=== PATIENT | female | born 1980 | race Caucasian/White ===

== ENCOUNTER → 2018-06-21 13:01 | Outpatient (CLI) | payer OTHER, SELFPAY ==
--- NOTE | 2018-06-21 | DI.MRI.S_ITS ---
PROCEDURE: MR ANKLE LT WO CON INDICATIONS: BILATERAL FOOT PAIN TECHNIQUE: Noncontrast sagittal T1 spin echo and T2 fast spin echo with fat saturation, axial proton density fast spin echo and T2 fast spin echo with fat saturation, coronal T1 spin echo and T2 fast spin echo with fat saturation through the ankle/hindfoot. COMPARISON: [facility], MR, MR ANKLE RT WO CON, 06/21/2018, 13:30. FINDINGS: Image quality: There is mild inhomogeneous fat saturation. Bones and joints: No bone marrow contusions or fractures. No hindfoot coalitions. No osteochondral injuries of the talar dome. There is a small plantar calcaneal enthesophyte mild associated bone marrow edema. No pathologic joint effusions. Medial structures: The posterior tibialis, flexor digitorum longus, and flexor hallucis longus tendons are intact. The posterior tibial neurovascular bundle appears normal within the tarsal tunnel, without extrinsic mass effect. The deltoid and spring ligaments appear intact. Lateral structures: The anterior talofibular, calcaneofibular, and posterior talofibular ligaments appear intact. More superiorly, the anterior and posterior tibiofibular ligaments appear intact, as is the intermalleolar ligament. The tibiofibular syndesmosis is normal in width at 2 mm or less. The peroneus longus and brevis tendons demonstrate normal location and morphology. Adjacent bony peroneal tubercle and retrotrochlear prominence are normal in size. The sinus tarsi demonstrates normal fatty signal, without edema, fibrosis, or cyst formation. The calcaneonavicular and calcaneocuboid components of the bifurcate ligament appear intact. The dorsal calcaneocuboid ligament appears intact. Anterior structures: The tibialis anterior, extensor hallucis longus, and extensor digitorum longus tendons appear intact. The dorsal talonavicular ligament appears intact. Posterior and plantar structures: Achilles tendon is intact. There is thickening of the central and lateral cords of the plantar fascia with associated mild intrasubstance partial tearing of the lateral cord. There is mild adjacent soft tissue edema. No abductor digiti quinti muscle atrophy to suggest Keller neuropathy. IMPRESSION: 1. Findings consistent with plantar fasciitis with mild partial tearing at the origin of the lateral cord associated with mild reactive edema in the calcaneus. Dictated by: Scott Alfredo M.D. on 06/21/2018 at 17:15 Approved by: Scott Alfredo M.D. on 06/21/2018 at 17:21
--- NOTE | 2018-06-21 | DI.MRI.S_ITS ---
PROCEDURE: MR ANKLE RT WO CON INDICATIONS: BILATERAL FOOT PAIN TECHNIQUE: Noncontrast sagittal T1 spin echo and T2 fast spin echo with fat saturation, axial proton density fast spin echo and T2 fast spin echo with fat saturation, coronal T1 spin echo and T2 fast spin echo with fat saturation through the ankle/hindfoot. COMPARISON: None. FINDINGS: Image quality: There is mild inhomogeneous fat saturation. Bones and joints: No bone marrow contusions or fractures. There is a small plantar calcaneal enthesophyte with associated mild bone marrow edema. There is a small focus of subchondral edema along the medial talar dome associated with a small focus of overlying chondral fissuring. No hindfoot coalitions. No pathologic joint effusions. Medial structures: The posterior tibialis, flexor digitorum longus, and flexor hallucis longus tendons are intact. The posterior tibial neurovascular bundle appears normal within the tarsal tunnel, without extrinsic mass effect. The deltoid and spring ligaments appear intact. Lateral structures: The anterior talofibular, calcaneofibular, and posterior talofibular ligaments appear intact. More superiorly, the anterior and posterior tibiofibular ligaments appear intact, as is the intermalleolar ligament. The tibiofibular syndesmosis is normal in width at 2 mm or less. The peroneus longus and brevis tendons demonstrate normal location and morphology. Adjacent bony peroneal tubercle and retrotrochlear prominence are normal in size. The sinus tarsi demonstrates preserved fatty signal, without edema, fibrosis, or cyst formation. The calcaneonavicular and calcaneocuboid components of the bifurcate ligament appear intact. The dorsal calcaneocuboid ligament appears intact. Anterior structures: The tibialis anterior, extensor hallucis longus, and extensor digitorum longus tendons appear intact. The dorsal talonavicular ligament appears intact. Posterior and plantar structures: Achilles tendon is intact. There is thickening of the central cord of the plantar fascia proximally with mild intrasubstance partial tearing at its origin and associated mild adjacent soft tissue edema. Findings are consistent with plantar fasciitis. No abductor digiti quinti muscle atrophy to suggest Keller neuropathy. IMPRESSION: 1. Findings consistent plantar fasciitis with mild intrasubstance partial tearing at the origin of the central cord and mild reactive edema in the calcaneus. 2. Small focus of subchondral edema in the medial talar dome associated with mild overlying chondral degeneration. Dictated by: Scott Alfredo M.D. on 06/21/2018 at 16:19 Approved by: Scott Alfredo M.D. on 06/21/2018 at 16:26
== END ==
PROVIDERS: Visit Provider Podiatrist
DX: M79.671 Pain in right foot (principal); M79.672 Pain in left foot; M72.2 Plantar fascial fibromatosis
CPT/HCPCS: 73721

== ENCOUNTER 2019-01-25 19:54 | Emergency (ER) | payer OTHER, SELFPAY ==
[2019-01-25 20:04] VITALS: BP 120/58; PULSE 88; RESP 18; TEMP 36.8; O2SAT 97; BMI 41.5
--- NOTE | 2019-01-25 20:19 | ED.ABDPAIN ---
HPI - Abdominal Pain General Chief Complaint: Abdominal Pain Stated Complaint: STOMACH PAIN Time Seen by Provider: 01/25/19 20:12 Source: patient Mode of arrival: ambulatory Limitations: no limitations History of Present Illness HPI narrative: Patient is a 38-year-old female who presents with sudden onset of epigastric pain has progressively gotten worse throughout the day. She states is quite intense it does not seem to be radiating to her chest or Lopressor abdomen. She denies nausea vomiting no diarrhea. She has never had anything like this in the past. She took ibuprofen earlier and he said it made the pain worse. She denies any history of acid reflux. MD complaint: abdominal pain Onset (ago): hour(s) Pain Consistency: constant Severity: moderate Quality: sharp Radiation: none Migration to: no migration Exacerbating factors: nothing Related Data Home Medications Medication Instructions Recorded Confirmed albuterol sulfate HFA 90 1 puff INHALATION .unk PRN gram 10/20/18 10/20/18 mcg/actuation aerosol inhaler cetirizine 10 mg capsule 10 mg PO DAILY 10/20/18 10/20/18 fluticasone 250 mcg-salmeterol 50 1 inhalation INHALATION BID 10/20/18 10/20/18 mcg/dose blistr powdr for inhalation fluticasone propionate 50 1 spray NASAL DAILY 10/20/18 10/20/18 mcg/actuation nasal spray,suspension Previous Rx's Medication Instructions Recorded gabapentin 300 mg capsule 300 mg PO TID #90 cap 10/20/18 methylprednisolone 4 mg tablets in See Rx Instructions PO PER PKG DIR 10/20/18 a dose pack #21 each omeprazole 20 mg PO DAILY PRN #14 tab 01/25/19 Allergies Allergy/AdvReac Type Severity Reaction Status Date / Time No Known Allergies Allergy Uncoded 12/25/18 14:42 Review of Systems Review of Systems GENERAL: Denies chills, fatigue, malaise, fever, sweats, travel HEENT: Denies sinus pain, ear pain, sore throat, difficulty swallowing, neck pain RESPIRATORY: Denies dyspnea, cough, wheezing, hemoptysis, sputum. CARDIOVASCULAR: Denies chest pain, palpitations, orthopnea, edema GASTROINTESTINAL: See HPI : Denies dysuria, frequency, incontinence, hematuria, urinary retention, flank pain. MUSCULOSKELETAL: Denies weakness, joint pain, or bony pain SKIN: No rash, no erythema, no pruritus NEUROLOGIC: Denies weakness, dizziness, headache, numbness, change in speech, confusion PSYCHIATRIC: No concerning psychosocial issues. 12 point review of systems is negative except for those stated above and HPI [facility] Medical History Patient denies significant medical history (Acute) Social History Smoking Status: Former smoker Social History Smoking Status: Former smoker Exam Initial Vital Signs Initial Vital Signs: Vital Signs Temperature 98.2 F 01/25/19 20:04 Pulse Rate 88 01/25/19 20:04 Respiratory Rate 18 01/25/19 20:04 Blood Pressure 120/58 L 01/25/19 20:04 Pulse Oximetry 97 01/25/19 20:04 GENERAL: Middle-aged female appears uncomfortable and in no acute distress. HEENT: Head atraumatic,EOMI, pupils reactive, face symmetric, CARDIOVASCULAR: Regular rate and rhythm without murmurs, rubs or gallops. RESPIRATORY: Breath sounds equal bilaterally, no wheezes rales or rhonchi. ABDOMEN: Soft, tender epigastric area no guarding or rebound negative Araujo's sign no lower abdominal pain EXTREMITIES: Normal range of motion, no clubbing or edema. Neurovascularly intact NEUROLOGICAL: Alert and oriented x4.Normal gait and speech. SKIN: Warm, dry, no laceration, no petechiae, no rashes or lesions. Scores HEART Score Heart Score history: Slightly Suspicious Heart Score EKG: Normal Heart Score Age: < 45 years old Heart Score risk factors: No known risk factors Heart Score troponin: < or = to normal limit Heart Score Total: 0 Course Orders Ordered: ED Orders 01/25/19 20:08 EKG-12 Lead Stat 01/25/19 20:14 Complete Blood Count AUTO DIFF Stat Comprehensive Metabolic Panel Stat Lipase Stat Partial Thromboplastin Time Stat Prothrombin Time INR Stat Troponin I Stat 01/25/19 20:25 US abdomen limited Stat Discontinued Medications Hydromorphone HCl (Dilaudid) 0.5 mg IV NOW ONE Stop: 01/25/19 20:26 Last Admin: 01/25/19 20:33 Dose: 0.5 mg Pantoprazole Sodium (Protonix) 40 mg IV NOW ONE Stop: 01/25/19 20:26 Last Admin: 01/25/19 20:33 Dose: 40 mg Vital Signs - 8 hr 01/25/19 20:04 01/25/19 21:30 01/25/19 21:56 Temperature 98.2 F Pulse Rate 88 84 65 Respiratory Rate 18 12 Blood Pressure 120/58 L Blood Pressure [Left Arm] 121/73 121/73 Pulse Oximetry 97 94 01/25/19 22:30 01/25/19 22:55 Temperature Pulse Rate 70 66 Respiratory Rate 17 19 Blood Pressure 125/67 Blood Pressure [Left Arm] 124/69 Pulse Oximetry 94 94 MDM - Abdominal Pain Lab Data Attestation: I reviewed the patient's lab results. Result diagrams: 01/25/19 20:14 01/25/19 20:14 Lab Results 01/25/19 01/25/19 01/25/19 Range/Units 20:14 20:14 20:14 WBC 13.2 H (4.5-11.0) X10^3/uL RBC 4.75 (4.0-5.2) X10^6/uL Hgb 14.5 (12.0-16.0) g/dL Hct 42.0 (36-46) % MCV 88.5 (80-100) fL MCH 30.5 (26-34) PG MCHC 34.5 (30-36) % RDW 13.1 (11.6-14.8) % Plt Count 306 (150-400) X10^3/uL Neut % (Auto) 77.3 H (50-75) % Lymph % (Auto) 15.0 L (25-40) % Hunt % (Auto) 6.0 (3-14) % Eos % (Auto) 1.2 L (2-4) % Baso % (Auto) 0.5 (0-2) % Neut # (Auto) 77617 H (8742-0470) /uL Lymph # (Auto) 2000 (8742-3802) /uL Hunt # (Auto) 800 (0-900) /uL Eos # (Auto) 200 (0-450) /uL Baso # (Auto) 100 (0-100) /uL PT 12.7 (10.1-12.7) SECONDS INR 1.1 (0.9-1.3) APTT 34 (26.4-36.2) SECONDS Sodium 138 (137-145) mmol/L Potassium 3.4 (3.4-5.1) mmol/L Chloride 105 (98-107) mmol/L Carbon Dioxide 24 (22-32) mmol/L BUN 8 (7-17) mg/dL Creatinine 0.50 L (0.52-1.04) mg/dL Estimated GFR > 60.0 (>60) mL/min BUN/Creatinine Ratio 16.0 (6-22) Glucose 102 H (70-100) mg/dL Calcium 8.9 (8.4-10.2) mg/dL Total Bilirubin 0.5 (0.2-1.3) mg/dL AST 19 (14-36) IU/L ALT 24 (9-52) IU/L Alkaline Phosphatase 72 (38-126) U/L Troponin I (0.01-0.034) ng/mL Total Protein 7.0 (6.3-8.2) g/dL Albumin 4.1 (3.5-5.0) g/dL Globulin 2.9 (1.7-4.1) g/dL Albumin/Globulin Ratio 1.4 (1.0-2.8) Lipase 58 (23-300) U/L 01/25/19 Range/Units 20:14 WBC (4.5-11.0) X10^3/uL RBC (4.0-5.2) X10^6/uL Hgb (12.0-16.0) g/dL Hct (36-46) % MCV (80-100) fL MCH (26-34) PG MCHC (30-36) % RDW (11.6-14.8) % Plt Count (150-400) X10^3/uL Neut % (Auto) (50-75) % Lymph % (Auto) (25-40) % Hunt % (Auto) (3-14) % Eos % (Auto) (2-4) % Baso % (Auto) (0-2) % Neut # (Auto) (9009-8409) /uL Lymph # (Auto) (1072-4680) /uL Hunt # (Auto) (0-900) /uL Eos # (Auto) (0-450) /uL Baso # (Auto) (0-100) /uL PT (10.1-12.7) SECONDS INR (0.9-1.3) APTT (26.4-36.2) SECONDS Sodium (137-145) mmol/L Potassium (3.4-5.1) mmol/L Chloride (98-107) mmol/L Carbon Dioxide (22-32) mmol/L BUN (7-17) mg/dL Creatinine (0.52-1.04) mg/dL Estimated GFR (>60) mL/min BUN/Creatinine Ratio (6-22) Glucose (70-100) mg/dL Calcium (8.4-10.2) mg/dL Total Bilirubin (0.2-1.3) mg/dL AST (14-36) IU/L ALT (9-52) IU/L Alkaline Phosphatase (38-126) U/L Troponin I < 0.012 (0.01-0.034) ng/mL Total Protein (6.3-8.2) g/dL Albumin (3.5-5.0) g/dL Globulin (1.7-4.1) g/dL Albumin/Globulin Ratio (1.0-2.8) Lipase (23-300) U/L Imaging Data US - abdomen: Radiologist's impression: PROCEDURE: US ABDOMEN LIMITED INDICATIONS: RIGHT UPPER QUADRANT PAIN TECHNIQUE: Real-time scanning was performed of the abdominal and retroperitoneal organs, with image documentation. COMPARISON: None. FINDINGS: Liver: Liver is normal in size and homogeneous in echotexture. Gallbladder: Nondistended. No gallstones. Normal gallbladder wall thickness. No pericholecystic fluid. Negative sonographic Araujo's sign. Biliary ducts: Intrahepatic bile ducts are non-dilated. Extrahepatic bile duct caliber measures 4 mm. Normal is 6-7 mm or less in diameter, or 10 mm or less post-cholecystectomy. Pancreas: Visualized portions of the pancreas are sonographically normal. Miscellaneous: No free abdominal fluid. IMPRESSION: Negative exam. No acute cholecystitis. No gallstones. Dictated by: Hu Roldan M.D. on 01/25/2019 at 21:52 ECG Data Attestation: I personally reviewed and interpreted this ECG as follows: Prior ECG tracings: not available for review Interpretation: Normal sinus rhythm rate 73 P are interval 135 T-wave inversion noted in lead [address] elevations MDM Narrative Medical decision making narrative: Patient overall is feeling significantly better after Dilaudid and Protonix. Ultrasound is negative. She has no chest pain. I do not believe this to be cardiac troponin is negative Discharge Plan Departure Patient Disposition: Home Clinical Impression: GERD (gastroesophageal reflux disease) Qualifiers: Esophagitis presence: esophagitis presence not specified Qualified Code(s): K21.9 - Gastro-esophageal reflux disease without esophagitis Discharge Date/Time: 01/25/19 22:57 Interventions: ED Discharge Assessment Last Done: 01/25/19 22:55 Instructions: DI for Gastroesophageal Reflux Disease (GERD) Activity Restrictions/Additional Instructions: *You have been diagnosed with acid reflux *What to do: At this time blood work and gallbladder are reassuring. His *Continue to take medications as directed Omeprazole 20 mg once a day on an empty stomach--> set at to [facility] in [place] *Follow up with your primary care provider in 2-3 days *Return to ER if you should have increasing pain and chest pain shortness of breath or any new, worsening or concerning symptoms Prescriptions: New omeprazole 20 mg tablet,delayed release (DR/EC) 20 mg PO DAILY PRN (Reason: acid reflux) Qty: 14 RF: 0 No Action Zyrtec 10 mg capsule 10 mg PO DAILY RF: 0 fluticasone propionate [Flonase Allergy Relief] 50 mcg/actuation spray,suspension 1 spray NASAL DAILY RF: 0 fluticasone propion-salmeterol [Advair Diskus] 250-50 mcg/dose blister with device 1 inhalation INHALATION BID RF: 0 albuterol sulfate 90 mcg/actuation HFA aerosol inhaler 1 puff INHALATION .unk PRNRF: 0 gabapentin 300 mg capsule 300 mg PO TID Qty: 90 RF: 2 methylprednisolone [Medrol (Marc)] 4 mg tablets,dose pack See Rx Instructions PO PER PKG DIR Qty: 21 RF: 0 Referrals: Kurt Mccurdy MD [Primary Care Provider] -
[2019-01-25 20:24] LABS: Add Manual Diff / Slide Review NO; Basophils Absolute Auto 100 /uL (0-100); Basophils Percent Auto 0.5 % (0-2); Eosinophils Absolute Auto 200 /uL (0-450); Eosinophils Percent Auto 1.2 % (2-4); Hemoglobin 14.5 g/dL (12.0-16.0); Lymphocytes Absolute Auto 2000 /uL (1100-4500); Mean Corpuscular HGB Conc 34.5 % (30-36); Mean Corpuscular Hemoglobin 30.5 PG (26-34); Mean Corpuscular Volume 88.5 fL (80-100); Monocytes Absolute Auto 800 /uL (0-900); Neutrophils Absolute Auto 10200 /uL (1500-7000); Neutrophils Percent Auto 77.3 % (50-75); Platelet Count 306 X10^3/uL (150-400); Red Blood Cell Count 4.75 X10^6/uL (4.0-5.2); Red Cell Distribution Width 13.1 % (11.6-14.8); White Blood Cell Count 13.2 X10^3/uL (4.5-11.0)
--- NOTE | 2019-01-25 20:25 | DI.US.S_ITS ---
PROCEDURE: US ABDOMEN LIMITED INDICATIONS: RIGHT UPPER QUADRANT PAIN TECHNIQUE: Real-time scanning was performed of the abdominal and retroperitoneal organs, with image documentation. COMPARISON: None. FINDINGS: Liver: Liver is normal in size and homogeneous in echotexture. Gallbladder: Nondistended. No gallstones. Normal gallbladder wall thickness. No pericholecystic fluid. Negative sonographic Araujo's sign. Biliary ducts: Intrahepatic bile ducts are non-dilated. Extrahepatic bile duct caliber measures 4 mm. Normal is 6-7 mm or less in diameter, or 10 mm or less post-cholecystectomy. Pancreas: Visualized portions of the pancreas are sonographically normal. Miscellaneous: No free abdominal fluid. IMPRESSION: Negative exam. No acute cholecystitis. No gallstones. Dictated by: Hu Roldan M.D. on 01/25/2019 at 21:52 Approved by: Hu Roldan M.D. on 01/25/2019 at 21:54
[2019-01-25] MEDS: HYDROMORPHONE 0.5 MG INJ IV (20:33)
[2019-01-25] MEDS: PANTOPRAZOLE 40 MG VIAL IV (20:33)
[2019-01-25 20:36] LABS: Alanine Aminotransferase 24 IU/L (9-52); Albumin 4.1 g/dL (3.5-5.0); Albumin Globulin Ratio 1.4 (1.0-2.8); Alkaline Phosphatase 72 U/L (38-126); Aspartate Aminotransferase 19 IU/L (14-36); Bilirubin Total 0.5 mg/dL (0.2-1.3); Blood Urea Nitrogen 8 mg/dL (7-17); Calcium 8.9 mg/dL (8.4-10.2); Carbon Dioxide 24 mmol/L (22-32); Chloride 105 mmol/L (98-107); Estimated Glomerular Filt Rate > 60.0 mL/min (>60); Globulin 2.9 g/dL (1.7-4.1); Glucose 102 mg/dL (70-100); HEMOLYSIS 19 (0-50); Lipase 58 U/L (23-300); Potassium 3.4 mmol/L (3.4-5.1); Sodium 138 mmol/L (137-145)
[2019-01-25 20:52] LABS: INR 1.1 (0.9-1.3); Prothrombin Time 12.7 SECONDS (10.1-12.7)
[2019-01-25 20:55] LABS: PTT Partial Thromboplastin Tim 34 SECONDS (26.4-36.2)
[2019-01-25 21:30] VITALS: BP 121/73; PULSE 84
[2019-01-25 21:56] VITALS: BP 121/73; PULSE 65; RESP 12; O2SAT 94
[2019-01-25 22:30] VITALS: BP 124/69; PULSE 70; RESP 17; O2SAT 94
[2019-01-25 22:32] LABS: Troponin I < 0.012 ng/mL (0.01-0.034)
[2019-01-25 22:55] VITALS: BP 125/67; PULSE 66; RESP 19; O2SAT 94
== END 2019-01-25 22:57 | disposition home or self-care (01) ==
PROVIDERS: Emergency Provider Emergency Medicine; PCP General Practice
DX: K21.9 Gastro-esophageal reflux disease without esophagitis (principal)
CPT/HCPCS: 36415; 36591; 76705; 80053; 83690; 84484; 85025; 85610; 85730; 93005; 93010; 96374; 96375; 99283; 99285; C9113; J1170

== ENCOUNTER → 2023-01-04 11:59 | Outpatient (CLI) | payer OTHER, SELFPAY ==
--- NOTE | 2023-01-04 | DI.MG.S_ITS ---
UNILATERAL RIGHT DIGITAL DIAGNOSTIC MAMMOGRAM 3D/2D WITH ADDITIONAL VIEWS: 01/04/2023 CLINICAL: Additional evaluation requested from prior study. Comparison is made to exam dated: 12/27/2022 mammogram - [facility]. The right breast is heterogeneously dense, which may obscure small masses (category c / 51-75% glandular tissue). There is an oval mass in the right breast at 9 o'clock posterior depth. There also is an oval mass in the right breast at 4 o'clock middle depth. No other significant masses or calcifications are seen in the breast. IMPRESSION: INCOMPLETE: NEEDS ADDITIONAL IMAGING EVALUATION The oval mass in the right breast at 9 o'clock posterior depth is indeterminate. The oval mass in the right breast at 4 o'clock middle depth is indeterminate. A targeted ultrasound is recommended and will immediately follow. Based on the Tyrer Cuzick model (a risk assessment model) the patient's lifetime risk is 9.8% and her 10 year risk is 1.7%. According to the ACR, ACS, and NCCN guidelines, an annual breast MRI exam along with mammogram is recommended if the patient's lifetime risk is 20% or greater. This exam was interpreted at Station ID: [id number]. NOTE: For mammograms, a report in lay terms will be sent to the patient. Approximately 15% of breast malignancies will not be visualized mammographically. In the management of a palpable breast mass, a negative mammogram must not discourage biopsy of a clinically suspicious lesion. Electronically Signed By: Hu Roldan M.D. slc/:01/05/2023 12:08:00 ACR BI-RADS Category 0: Incomplete 3340F
--- NOTE | 2023-01-04 | DI.US.S_ITS ---
LIMITED ULTRASOUND OF RIGHT BREAST AND AXILLA: 01/04/2023 CLINICAL: Patient returns today to evaluate two focal asymmetries in the right breast. Comparison is made to exams dated: 01/04/2023 mammogram - [facility] and 12/27/2022 mammogram - [facility]. Color flow and real-time ultrasound of the right breast 3-6 o'clock, 8-9 o'clock, and axilla regions were performed. Corey scale images of the real-time examination were reviewed. There is a 0.9 cm x 0.8 cm x 0.5 cm oval mass in the right breast at 9 o'clock posterior depth 7 cm from the nipple. This oval mass is hypoechoic. Additionally, there is a 0.8 cm x 0.8 cm x 0.3 cm oval mass with a microlobulated margin in the right breast at 8 o'clock middle depth 5 cm from the nipple. This oval mass is hypoechoic. Color flow imaging demonstrates that there is an adjacent vascularity. No sonographic mass identified in the right breast at 4 o'clock middle depth. In addition, there is a 1.2 cm enlarged lymph node with a circumscribed margin in the right axilla. No cortical thickening. Preserved fatty hilum. IMPRESSION: SUSPICIOUS OF MALIGNANCY The 0.9 cm x 0.8 cm x 0.5 cm oval mass in the right breast at 9 o'clock posterior depth resembles a fibroadenoma and is at a low suspicion for malignancy. -An ultrasound guided biopsy is recommended. The 0.8 cm oval mass in the right breast at 8 o'clock middle depth most likely is a fibroadenoma and is probably benign. -A follow-up ultrasound in 6 months is recommended. No mass identified at the site of mammographic abnormality in the right breast at 4 o'clock middle depth. This may represent an additional fibroadenoma and is probably benign. -Follow-up mammogram and possible ultrasound in 6 months is recommended. Enlarged right axillary lymph nodes are probably benign. No cortical thickening. Low suspicion. -Will preform right breast 9:00 biopsy, then correlate with expected benign pathology. -Recommend clinical correlation and follow-up ultrasound in 6 months. Exam findings were discussed with the patient. Patient is advised to monitor for significant change. Clinical follow-up is recommended. This exam was interpreted at Station ID: [id number]. Electronically Signed By: Hu Roldan M.D. slc/:01/04/2023 13:58:02 letter sent: Biopsy Required Ultrasound BI-RADS: 4a Low suspicion for malignancy
== END ==
PROVIDERS: PCP Physician Assistant; Referring Provider Family Medicine; Visit Provider Family Medicine
DX: R92.8 Other abnormal and inconclusive findings on diagnostic imaging of breast (principal); N63.15 Unspecified lump in the right breast, overlapping quadrants; N63.14 Unspecified lump in the right breast, lower inner quadrant
CPT/HCPCS: 76642; 77065; G0279

== ENCOUNTER → 2023-01-12 12:45 | Outpatient (CLI) | payer OTHER, SELFPAY ==
--- NOTE | 2023-01-12 | PATH_ITS ---
[facility] Accession Number: [id number] No. of containers..01 Tissue . 01 Material submitted: . breast - RIGHT BREAST MASS 9:00 7 CCMFN . 01 Diagnosis: Right Breast, 9 o'clock, 7 cm from Nipple, Image-Guided Core Biopsy: Fibroepithelial lesion consistent with fibroadenoma, with associated stromal hyalinization. Negative for significant atypia and malignancy. MRV 01/17/2023 1913 Local . 01 Comment: *Immunostains to the myoepithelial markers p63 and smooth muscle myosin heavy chain are performed, with the controls stained appropriately. 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 . * This test was developed and its performance characteristics determined by [employer]. It has not been cleared or approved by the U.S. Food and Drug Administration. The FDA has determined that such clearance or approval is not necessary. This test is used for clinical purposes. It should not be regarded as investigational or for research. . 01 Electronically signed: . Beverly Jalloh MD, Pathologist NPI- [id number] . 01 Gross description: . The specimen is received in formalin labeled with the patient's name, , and right breast 9 o'clock 7 cm FN, consists of multiple yellow to copeland soft tissue fragments aggregating to 1.7 x 1.0 x 0.2 cm. The specimen is inked black and submitted entirely in cassette A1. . The specimen was removed on 01/12/2023 at 1413; time in formalin not provided; cold ischemic time cannot be calculated; and total fixation time is approximately 22 hours. ([id number]) /MRV 01/13/2023 1752 Local . 01 Pathologist provided ICD-10: N60.21 . 01 CPT . 981017, [id number], [id number] Specimen Comment: A courtesy copy of this report has been sent to [facility] Pathology Performed at: 01 [facility] Cytology [address] [place] [address], [place], [place] [id number] MD Scott Fuentes MD Phone: [phone]
--- NOTE | 2023-01-12 12:48 | DI.US.S_ITS ---
ULTRASOUND GUIDED BIOPSY RIGHT BREAST USING VACUUM DEVICE WITH MARKING DEVICE INSERTED AND POST DIGITAL MAMMOGRAPHIC AND ULTRASOUND IMAGIN01/12/2023 CLINICAL: Right breast mass. PATIENT CONSENT: Risks (minor bleeding, infection, vasovagal reaction and repeat procedure), benefits and alternatives were explained to the patient and written informed consent was obtained. Correlation is made to exams dated: 01/12/2023 mammogram, 01/04/2023 ultrasound, 01/04/2023 mammogram - [facility], and 12/27/2022 mammogram - [facility]. An ultrasound guided biopsy using real-time ultrasound was performed for the 0.9 cm x 0.8 cm x 0.5 cm mass located in the right breast at 9 o'clock posterior depth 7 cm from the nipple. This was described on the previous mammography and ultrasound reports. The skin was prepped in the usual manner. Local anesthetic was administered to the access site. A skin mere was made in the breast. The abnormality was approached from the lateral aspect. A 13 gauge biopsy needle was placed adjacent to the abnormality under ultrasound guidance. Once the needle was documented to be in the correct location, four specimens were obtained using the Mammotome biopsy system. A clip was inserted into the biopsy cavity. A sterile dressing was applied to the access site. Post procedure digital mammographic and ultrasound imaging demonstrates the location device at the targeted area. The specimens were sent to the laboratory for pathological analysis. IMPRESSION: ULTRASOUND GUIDED BIOPSY BENIGN Ultrasound guided biopsy of the 0.9 cm x 0.8 cm x 0.5 cm mass in the right breast at 9 o'clock posterior depth 7 cm from the nipple was successful with no apparent post procedure complications. 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 Pathology results are concordant with imaging findings. Return to annual mammogram screening schedule is recommended. This exam was interpreted at Station ID: [id number]. Wander Ramirez M.D. ar,aty/:01/18/2023 20:35:44
--- NOTE | 2023-01-12 12:49 | DI.MG.S_ITS ---
UNILATERAL RIGHT DIGITAL DIAGNOSTIC MAMMOGRAM 3D/2D POST-PROCEDURE IMAGING FOR MARKER PLACEMENT: 01/12/2023 CLINICAL: Post clip. Comparison is made to exams dated: 01/04/2023 mammogram - [facility], 12/27/2022 mammogram - [facility], 01/04/2023 ultrasound, and 01/12/2023 ultrasound biopsy - [facility]. The right breast is heterogeneously dense, which may obscure small masses (category c / 51-75% glandular tissue). There is a marker clip in the appropriate position in the right breast at 9 o'clock posterior depth. IMPRESSION: POST PROCEDURE MAMMOGRAM FOR MARKER PLACEMENT There was a successful marker clip placement in the right breast posterior depth. Based on the Tyrer Cuzick model (a risk assessment model) the patient's lifetime risk is 10.3% and her 10 year risk is 1.8%. According to the ACR, ACS, and NCCN guidelines, an annual breast MRI exam along with mammogram is recommended if the patient's lifetime risk is 20% or greater. This exam was interpreted at Station ID: [id number]. NOTE: For mammograms, a report in lay terms will be sent to the patient. Approximately 15% of breast malignancies will not be visualized mammographically. In the management of a palpable breast mass, a negative mammogram must not discourage biopsy of a clinically suspicious lesion. Electronically Signed By: Wander mayers/jamaal:01/13/2023 11:37:43 ACR BI-RADS Category Post-procedure mammogram for marker placement
== END ==
PROVIDERS: PCP Physician Assistant; Referring Provider Physician Assistant; Visit Provider Physician Assistant
DX: N63.15 Unspecified lump in the right breast, overlapping quadrants (principal); N64.89 Other specified disorders of breast
CPT/HCPCS: 19083; 77065

== ENCOUNTER → 2024-01-02 16:17 | Outpatient (CLI) | payer OTHER, SELFPAY ==
--- NOTE | 2024-01-02 16:19 | DI.MG.S_ITS ---
BILATERAL DIGITAL SCREENING MAMMOGRAM 3D/2D WITH CAD: 01/02/2024 CLINICAL: Routine screening. Comparison is made to exams dated: 12/27/2022 mammogram - [facility], 01/12/2023 ultrasound biopsy, 01/04/2023 ultrasound, and 01/04/2023 mammogram - [facility]. Both breasts are heterogeneously dense, which may obscure small masses (category c / 51-75% glandular tissue). Current study was also evaluated with a Computer Aided Detection (CAD) system. There is an oval mass in the right breast at 4 o'clock middle depth. This is not significantly changed and was not seen on the prior ultrasound. There also is an oval focal asymmetry with a circumscribed margin in the right breast at 8 o'clock middle depth. This correlates with ultrasound findings. Additionally, there is a stable oval mass in the right breast at 9 o'clock posterior depth. There is a biopsy clip associated with the mass. No other significant masses, calcifications, or other findings are seen in either breast. IMPRESSION: INCOMPLETE: NEEDS ADDITIONAL IMAGING EVALUATION The stable oval mass in the right breast at 4 o'clock middle depth corresponds to the prior probably benign mammographic findings and is indeterminate. An ultrasound is recommended for further evaluation. The oval focal asymmetry in the right breast at 8 o'clock middle depth corresponds to prior probaby benign sonographic mass and is indeterminate. An ultrasound is recommended for further evaluation. The stable oval mass in the right breast at 9 o'clock posterior depth is consistent with a biopsy-proven fibroadenoma and is benign. Based on the Tyrer Cuzick model (a risk assessment model) the patient's lifetime risk is 10.2% and her 10 year risk is 1.9%. According to the ACR, ACS, and NCCN guidelines, an annual breast MRI exam along with mammogram is recommended if the patient's lifetime risk is 20% or greater. This exam was interpreted at Station ID: [id number]. NOTE: For mammograms, a report in lay terms will be sent to the patient. Approximately 15% of breast malignancies will not be visualized mammographically. In the management of a palpable breast mass, a negative mammogram must not discourage biopsy of a clinically suspicious lesion. Electronically Signed By: Wander Barclay M.D. ar/:01/04/2024 10:30:24 letter sent: Need Ultrasound ACR BI-RADS Category 0: Incomplete 1634F
== END ==
LOC: MAMMO 16:19
PROVIDERS: Referring Provider Nurse Practitioner Family; Visit Provider Nurse Practitioner Family
DX: Z12.31 Encounter for screening mammogram for malignant neoplasm of breast (principal); R92.333 Mammographic heterogeneous density, bilateral breasts
CPT/HCPCS: 77063; 77067

== ENCOUNTER 2024-01-10 09:05 | Day surgery (SDC) | payer OTHER, SELFPAY ==
--- NOTE | 2024-01-10 | PATH_ITS ---
[facility] Accession Number: [id number] No. of containers..01 Tissue . 01 Material submitted: . colon - ASCENDING COLON POLYP . 01 Diagnosis: ASCENDING COLON POLYP: Tubular adenoma. [facility] 01/12/2024 1633 Local . 01 Electronically signed: . Scott Fuentes MD, Pathologist NPI- [id number] . 01 Gross description: . Received in formalin with two patient identifiers and ascending colon polyp, is a single copeland soft tissue fragment, 0.6 cm in greatest dimension. Submitted in A1. ([id number]) /MRV 01/12/2024 1633 Local . 01 Pathologist provided ICD-10: D12.2 . 01 CPT . 393138 Specimen Comment: A courtesy copy of this report has been sent to [phone] Performed at: [address] [facility] [id number] MD Scott Fuentes MD Phone: [phone]
[2024-01-10] MEDS: LACTATED RINGERS 1,000 ML 42 ML IV (09:13)
[2024-01-10 09:26] VITALS: BP 120/74; PULSE 85; RESP 18; TEMP 37.4; O2SAT 99
--- NOTE | 2024-01-10 10:27 | PM.HP.1 ---
History of Present Illness History of Present Illness Date Patient Seen: 01/10/24 Time Patient Seen: 10:28 Chief complaint: SDC Narrative: No family history. No symptoms. Here for first screening colonoscopy [facility] Medical History Lumbosacral spondylosis with radiculopathy Patient denies significant medical history Social History Smoking Status: Former smoker alcohol intake: current Meds Home Medications and Allergies Home Medications Medication Instructions Recorded Confirmed Type albuterol sulfate 90 mcg/actuation 1 puff inhalation .unk PRN 10/20/18 01/10/24 History aerosol inhaler Adequate Ventilation cetirizine 10 mg capsule (Zyrtec) 10 mg PO DAILY 10/20/18 01/10/24 History fluticasone 250 mcg-salmeterol 50 1 inhalation inhalation BID 10/20/18 10/20/18 History mcg/dose blistr powdr for inhalation (Advair Diskus) fluticasone propionate 50 1 spray intranasal DAILY 10/20/18 01/10/24 History mcg/actuation nasal spray,suspension (Flonase Allergy Relief) Allergies Allergy/AdvReac Type Severity Reaction Status Date / Time No Known Drug Allergies Allergy Verified 01/09/24 09:50 Review of Systems Review of Systems ROS: Yes All systems reviewed with the patient and are negative except as otherwise documented Exam Vital Signs (past 8 hours): - 01/10/24 09:26 Temperature 99.3 F Pulse Rate 85 Respiratory Rate 18 Blood Pressure 120/74 Pulse Oximetry 99 Oxygen Delivery Method Room Air Oxygen Delivery Method Room Air Const General: cooperative, healthy appearing and comfortable [facility] Head: normocephalic and atraumatic Ears: hearing grossly normal bilaterally Eyes Sclera: sclerae normal Neck Neck: trachea midline Chest Chest: normal inspection of the chest Resp Effort & Inspection: normal respiratory effort and able to speak in complete sentences Cardio Rate: regular rate Rhythm: regular rhythm GI Palpation: soft Skin General: elasticity normal and turgor normal Neuro General: patient alert, patient awake and patient oriented x3 Cognition: normal cognition Psych Appearance: grossly normal Mental Status: mental status grossly normal Affect: normal affect Judgment: judgment good Assessment & Plan Assessment & Plan narrative: colon cancer screening with colonoscopy and anesthesia Time-Based Coding :: [TOTAL MINUTES] spent with patient and on the chart (including review of chart, obtaining history, exam, reviewing outside data, placing orders, documenting exam and treatment plan, and counseling patient) on [DATE].
--- NOTE | 2024-01-10 10:54 | PM.OP.COLON ---
Operative Date/Time/Diagnoses Date of procedure: 01/10/24 Time of procedure: 10:54 Pre-op diagnosis: Colon cancer screening Post-op diagnosis: same Procedure & Clinicians Study performed: Colonoscopy with cold snare polypectomy Same procedure as scheduled: Yes Indications: Colon cancer screening Surgeon: Beverly Puente Procedure Notes Procedure in detail: Preop diagnosis: Colon cancer screening Postop diagnosis: Same Operative procedure: Colonoscopy with cold snare polypectomy using anesthesia Surgeon: Alina Puente MD Findings: 2 mm polyp on stalk in the distal ascending colon. Scant diverticulosis of small size Procedure: Patient placed in lateral position. Rectal exam performed showing normal tone no masses. Colonoscope inserted into the rectum and advanced to ileocecal valve with minimal difficulty. Insufflation extraction scope including a retroflex had the above findings. Impression: Grossly appearing adenomatous polyp 2 mm in size in the distal ascending colon. Small scant diverticulosis Plan: Repeat colonoscopy in 5 years, await pathology results. Findings: divertiulosis and polyp(s) (2 mm polyp ascending colon) Specimen(s): none sent (Ascending colon polyp 2 mm) Complications: none Post-procedure Recommendations: Colonoscopy in 5 years Follow up: as needed Disposition: PACU
[2024-01-10 10:56] VITALS: BP 95/56; PULSE 72; RESP 20; TEMP 36.7; O2SAT 97
[2024-01-10 11:01] VITALS: BP 99/58; PULSE 77; RESP 20; O2SAT 99
[2024-01-10 11:06] VITALS: BP 121/66; PULSE 67; RESP 14; O2SAT 98
[2024-01-10 11:11] VITALS: BP 101/56; PULSE 68; RESP 14; O2SAT 99
== END 2024-01-10 11:28 | disposition home or self-care (01) ==
PROVIDERS: Referring Provider Surgery; Visit Provider Surgery
PROC: 0DJD8ZZ Inspection of Lower Intestinal Tract, Via Natural or Artificial Opening Endoscopic (ICD-10-PCS; CPT 45378; principal; 2024-01-10 10:00)
DX: Z12.11 Encounter for screening for malignant neoplasm of colon (principal); K57.30 Diverticulosis of large intestine without perforation or abscess without bleeding
CPT/HCPCS: 45385; J2704

== ENCOUNTER → 2024-01-11 13:04 | Outpatient (CLI) | payer OTHER, SELFPAY ==
--- NOTE | 2024-01-11 13:05 | DI.US.S_ITS ---
LIMITED ULTRASOUND OF RIGHT BREAST AND AXILLA: 01/11/2024 CLINICAL: Patient returns for a 6 month follow up of the right breast. Comparison is made to exams dated: 01/02/2024 mammogram, 01/12/2023 ultrasound biopsy, 01/12/2023 mammogram, 01/04/2023 ultrasound, 01/04/2023 mammogram - [facility], and 12/27/2022 mammogram - [facility]. Color flow and real-time ultrasound of the right breast 4 o'clock, 8-9 o'clock, and axilla regions were performed. Corey scale images of the real-time examination were reviewed. There is a 1.3 cm x 0.6 cm x 0.3 cm oval solid mass in the right breast at 4 o'clock middle depth 5 cm from the nipple. This oval solid mass is hypoechoic. Color flow imaging demonstrates that there is no vascularity present. There also is a 1 cm x 0.7 cm x 0.4 cm oval mass with a microlobulated margin in the right breast at 8 o'clock middle depth 6 cm from the nipple. This oval mass is hypoechoic. This abnormality is not significantly changed. Color flow imaging demonstrates that there is an adjacent vascularity. No enlarged right axillary lymph nodes. No significant abnormalities were seen sonographically in the right axilla. IMPRESSION: PROBABLY BENIGN The 1.3 cm solid mass in the right breast at 4 o'clock middle depth is probably benign. The 1 cm mass in the right breast at 8 o'clock middle depth most likely is a fibroadenoma and is probably benign. No enlarged right axillary lymph nodes. A follow-up mammogram and an ultrasound in 12 months is recommended to demonstrate long-term stability. Exam findings were conveyed to the patient. Patient is advised to monitor for significant change. This exam was interpreted at Station ID: [id number]. Electronically Signed By: Hu Roldan M.D. [facility] [place]/:01/11/2024 16:06:19 letter sent: Followup Recommended Ultrasound BI-RADS: 3 Probably benign
== END ==
PROVIDERS: Referring Provider Nurse Practitioner Family; Visit Provider Nurse Practitioner Family
DX: R92.8 Other abnormal and inconclusive findings on diagnostic imaging of breast (principal); N63.14 Unspecified lump in the right breast, lower inner quadrant; N63.13 Unspecified lump in the right breast, lower outer quadrant
CPT/HCPCS: 76642

== ENCOUNTER → 2025-01-10 08:50 | Outpatient (CLI) | payer OTHER, SELFPAY ==
--- NOTE | 2025-01-10 08:51 | DI.MG.S_ITS ---
MM diagnostic mammo BI, US breast RT limited: 01/10/2025 BI-RADS: 2 CLINICAL: 44-year old female for bilateral diagnostic mammogram and right diagnostic breast ultrasound. Tyrer-Cuzick lifetime risk of 8.2%. No personal or first- degree family history of breast cancer. The patient had a prior right breast biopsy. The patient presents for follow-up. PRIOR EXAMS 01/11/2024, 01/02/2024, 01/12/2023, 01/04/2023. MAMMOGRAPHY TECHNIQUE: 2D and 3D (tomosynthesis) digital mammographic views obtained, with additional images as needed for full coverage. Current study was also evaluated with a Computer Aided Detection (CAD) system. ULTRASOUND TECHNIQUE TARGETED Right Breast Ultrasound: Real-time ultrasound exam was performed focused to area of clinical and/or imaging concern. Real-time oreilly scale and color doppler imaging of the area of clinical interest was performed with image documentation. DENSITY B. There are scattered areas of fibroglandular density. MAMMOGRAPHY FINDINGS Right (finding-1): Lower Inner at 4:00, Middle depth: There is an oval mass present that is unchanged in size and appearance. This finding has demonstrated two years of stability and is consistent with a benign etiology. Right (finding-2): Lower Outer at 8:00, Middle depth: There is a stable focal asymmetry present. This finding has demonstrated two years of stability and is consistent with a benign etiology. Right: Upper Outer at 9:00, Posterior depth: Correlating with area of biopsy there is an oval mass present that is unchanged in size and appearance. This finding has demonstrated two years of stability and is consistent with a benign etiology. Left: No suspicious mass, asymmetry, microcalcification, or other abnormality seen. ULTRASOUND FINDINGS Right (finding-1): Lower Inner at 4:00, 5 cm from nipple, measuring 1.3 x 0.3 x 0.6 cm - previously measuring (01/11/2024) 1.3 x 0.3 x 0.6 cm: There is an oval mass that is parallel. The mass is unchanged in size and appearance. Doppler shows no vascularity. Right (finding-2): Lower Outer at 8:30, 6 cm from nipple, measuring 0.9 x 0.5 x 0.7 cm - previously measuring (01/11/2024) 1 x 0.4 x 0.7 cm: There is a mass showing no posterior acoustic features. The mass is unchanged in size and appearance. Doppler shows no vascularity. IMPRESSION: Right * No evidence of malignancy with benign findings. Left * No evidence of malignancy. RECOMMENDATIONS Bilateral * Annual screening mammography. COMMENTS: Findings and recommendations were conveyed to the patient during today's evaluation. OVERALL ASSESSMENT CATEGORY BI-RADS-2: Benign. The [employer] recommends annual screening mammography beginning at age 40 for women with average risk of breast cancer. ELECTRONICALLY SIGNED: Sheryl Tran M.D. on 01/10/2025 at 12:23:09 PM PT Interpreting Station ID: [id number]
== END ==
LOC: MAMMO 08:51
PROVIDERS: Referring Provider Nurse Practitioner Family; Visit Provider Nurse Practitioner Family
DX: R92.8 Other abnormal and inconclusive findings on diagnostic imaging of breast (principal)
CPT/HCPCS: 76642; 77066; G0279